=== PATIENT | female | born 1945 | race Caucasian/White ===

== ENCOUNTER 2016-06-09 08:08 | Day surgery (SDC) | payer MEDICARE, BC ==
[~2016-06-09 08:08] MED LIST: ACET500CAP PO; AMB10 PO; AMB5 PO; ATV.5 PO; ATV1 PO; AUG875 PO; CELEXA40 MG PO; CHEMOTHERAPY; DIL2TAB PO; ESTRAVEN; ESTROVEN PO; ESTROVENT; FISH-EPA1000 MG PO; LEVAQUIN750 MG PO; MARI2.5 PO; MOBIC15 MG PO; MOVE FREE PO; PCET PO; PRILOSEC OTC20 MG PO; PROTONIX PO; SEROQUEL300 MG PO; T PO; VANCOCIN HCL125 MG PO; WELL100 PO; WELL75 PO; WELLBUTRIN200 MG PO; ZOFRAN ODT4 MG PO
[2016-06-09 08:55] LABS: HEMATOCRIT 26.3 % (36.0-48.0); HEMOGLOBIN 8.4 g/dL (12.0-16.0); MEAN CORPUS HGB CONC 31.9 g/dL (32.0-36.0); MEAN CORPUSCULAR HEMOGLOB 29.2 pg (26.0-34.0); RBC DISTRIBUTION WIDTH 20.1 % (12.0-16.0); RED CELL COUNT 2.88 10/6/uL (4.0-5.6)
[2016-06-09 08:58] LABS: MANUAL DIFF YES %; MEAN CORPUSCULAR VOLUME 91.3 fL (80-100); PLATELET COUNT 42 10/3/uL (150-400); RETICULOCYTE COUNT 1.3 % (0.5-2.5); RETICULOCYTE COUNT ABSOLUTE 36.3 10/3/uL (20.2-119.8); WHITE BLOOD CELLS 1.2 10/3/uL (4.5-10.5)
[2016-06-09 09:03] LABS: BUN (BLOOD UREA NITROGEN) 16 MG/DL (6-23); CALCIUM, SERUM 8.6 MG/DL (8.5-10.4); CHLORIDE, SERUM 105 MMOL/L (96-112); CO2 (CARBON DIOXIDE) 27 MMOL/L (24-34); CREATININE 0.82 MG/DL (0.55-1.02); GFR AFRICAN AMERICAN 85 ML/MIN (>=60); GFR NON AFRICAN AMERICAN 73 ML/MIN (>=60); GLUCOSE, SERUM 100 MG/DL (60-99); POTASSIUM, SERUM 3.7 MMOL/L (3.5-5.3); SODIUM, SERUM 139 MMOL/L (135-148)
[2016-06-09 10:03] LABS: ANISOCYTOSIS 1+ (5-10/OIF) (0-5/OIF)
[2016-06-09 10:06] LABS: BAND NEUTROPHILS 1 %; BASOPHILS 8 %; EOSINOPHILS 3 %; EOSINOPHILS ABSOLUTE (CALC) 0.04 10/3/uL (0.0-0.53); LYMPHOCYTES 47 %; LYMPHOCYTES ABSOLUTE (CALC) 0.56 10/3/uL (0.67-4.30); MONOCYTES 7 %; MONOCYTES ABSOLUTE (CALC) 0.08 10/3/uL (0.21-1.20); NEUTROPHILS ABSOLUTE (CALC) 0.42 10/3/uL (2.02-8.40); SEGMENTED NEUTROPHIL (0) 34 %; TOTAL NUCLEATED CELLS 100
== END 2016-06-09 11:19 | disposition home or self-care (01) ==
LOC: SDC 08:08
PROVIDERS: Anesthesiology; Pathology Cytopathology
PROC: 07DR3ZX Extraction of Iliac Bone Marrow, Percutaneous Approach, Diagnostic (ICD-10-PCS; principal; 2016-06-09 10:00)
DX: C92.10 Chronic myeloid leukemia, BCR/ABL-positive, not having achieved remission (principal); D69.6 Thrombocytopenia, unspecified; F32.9 Major depressive disorder, single episode, unspecified; F41.0 Panic disorder [episodic paroxysmal anxiety]; Z91.041 Radiographic dye allergy status; Z88.5 Allergy status to narcotic agent; Z88.1 Allergy status to other antibiotic agents; Z91.040 Latex allergy status; Z79.899 Other long term (current) drug therapy
CPT/HCPCS: 80048; 85025; 85045; 88184; 88185; 88237; 88305; 88311; 88313; 88360

== ENCOUNTER 2016-06-30 07:39 | Emergency (ER) | payer MEDICARE, BC | END 2016-06-30 09:01 | disposition home or self-care (01) | LOC: ER 07:39 | DX: M79.662 Pain in left lower leg (principal); Z87.442 Personal history of urinary calculi; Z85.6 Personal history of leukemia; Z88.5 Allergy status to narcotic agent; Z91.040 Latex allergy status; Z88.1 Allergy status to other antibiotic agents; Z79.899 Other long term (current) drug therapy | CPT/HCPCS: 93971; 96372; 99284; J1170 ==